=== PATIENT | female | born 1965 | race Caucasian/White ===

== ENCOUNTER → 2020-05-13 12:18 | Outpatient (CLI) | payer OTHER, SELFPAY ==
--- NOTE | ~2020-05-13 | XR_ITS ---
XR_[id number]_CR DATE: 05/13/2020 12:37 INDICATION: Neck pain TECHNIQUE: AP, open-mouth, odontoid and lateral views COMPARISON: None FINDINGS: There is diffuse osteopenia. There is reversal of cervical curvature. C1 and C2 are normally aligned and the odontoid process is intact. There is approximately 1.8 mm anterolisthesis at C4-5. There is severe degenerative disc disease at C5-6 with minimal retrolisthesis. There is moderately severe degenerative disc disease at C6-7. There is prominent posterior spurring at C5-6 and C6-7. Uncovertebral joint spurring is noted at C5-6 and C6-C7, particularly on the left. No fracture or dislocation or locked facet or prevertebral soft tissue swelling. IMPRESSION: Diffuse osteopenia Reversal of cervical curvature Approximately 1.8 mm anterolisthesis at C4-5 Severe degenerative disc disease with prominent posterior spurring and mild retrolisthesis at C5-6 Moderately severe degenerative disc disease at C6-7 with prominent posterior spurring Uncovertebral joint spurring at C5-6 and C6-7, particularly on the left Reviewed, dictated and finalized at [facility]. Reviewed, dictated and finalized at location [facility]. IMPRESSION: Diffuse osteopenia Reversal of cervical curvature Approximately 1.8 mm anterolisthesis at C4-5 Severe degenerative disc disease with prominent posterior spurring and mild ret rolisthesis at C5-6 Moderately severe degenerative disc disease at C6-7 with prominent posterior sp urring Uncovertebral joint spurring at C5-6 and C6-7, particularly on the left
== END ==
PROVIDERS: PCP Nurse Practitioner Family; Visit Provider Nurse Practitioner Family
DX: M50.322 Other cervical disc degeneration at C5-C6 level (principal); M50.323 Other cervical disc degeneration at C6-C7 level
CPT/HCPCS: 72040

== ENCOUNTER 2024-07-16 16:07 | Outpatient (CLI) | payer OTHER, SELFPAY ==
--- NOTE | ~2024-07-16 | XR_ITS ---
XR chest 2V Ordering provider: DEEPTHI Miranda History: 58 years Female with . R05.3 - Chronic cough . Comparison: None. FINDINGS: MEDIASTINUM: The cardiac silhouette is not enlarged. LUNGS: No infiltrates, effusions or pneumothorax. OTHER: No free air under the diaphragm. IMPRESSION: No acute cardiopulmonary pathology. Reviewed, dictated and finalized at location [facility].
== END 2024-07-16 16:08 | disposition home or self-care (01) ==
LOC: ANHIMG 16:10
PROVIDERS: PCP Family Medicine; Visit Provider Nurse Practitioner Family
DX: R05.3 Chronic cough (principal)
CPT/HCPCS: 71046